=== PATIENT | male | born 1960 ===

== ENCOUNTER → 2018-08-26 | Outpatient (CLI) | payer OTHER ==
--- NOTE | 2018-08-27 09:23 | Diagnostic Imaging Report ---
MRI SPINE LUMBAR WO HISTORY: Lumbar strain COMPARISON: None. TECHNIQUE: Sagittal T1, sagittal T2, sagittal STIR, axial T2, coronal T2, and axial proton density weighted images of the lumbar spine were obtained without contrast. DISCUSSION: Number of non-rib bearing lumbar vertebral bodies: 5. Alignment: Normal lordosis. No scoliosis. Vertebrae: No fractures, or neoplasm. Conus medullaris: Normal, ends at L1. Cauda equina: No masses or arachnoiditis. Posterior paraspinal muscles: Well preserved. No signal abnormalities. Soft tissues: No signal abnormalities. Mild multilevel lumbar disc degeneration is present. There are nonspecific minimal inflammatory endplate changes at L1-L2, L2-L3, and L4-L5. T12-L1: Disc bulge without significant canal or foraminal stenosis. L1-L2: Mild canal stenosis due to disc bulge, ligamentum flavum thickening, and superimposed 5 mm left paracentral disc extrusion (with 15 mm superior migration). The left lateral recess is effaced. No significant foraminal stenosis. L2-L3: Mild left foraminal stenosis due to disc bulge and facet arthrosis. No significant canal or right foraminal stenosis. L3-L4: Mild canal stenosis due to disc bulge and ligamentum flavum thickening. Mild bilateral foraminal stenoses due to disc bulge and facet arthrosis. L4-L5: Mild canal stenosis due to disc bulge and ligamentum flavum thickening. Both lateral recesses are slightly effaced. Mild to moderate bilateral foraminal stenoses due to disc bulge and facet arthrosis. L5-S1: Mild to moderate bilateral foraminal stenoses due to disc bulge and facet arthrosis. No significant canal stenosis. IMPRESSION: 1. Mild multilevel lumbar disc degeneration. Nonspecific minimal inflammatory endplate changes at L1-L2, L2-L3, and L4-L5. 2. Mild degenerative canal stenoses at L1-L2, L3-L4, and L4-L5. 3. Associated left L1-L2 paracentral disc extrusion (with 15 mm superior migration) effaces the left lateral recess. 4. Mild to moderate bilateral degenerative foraminal stenoses at L4-L5 and L5-S1. Signed by: Dr. Emmanuel Burns M.D. on 08/27/2018 9:19 AM
== END ==
LOC: MRI 11:15
PROVIDERS: ATTEND Family Medicine
DX: S39.012D Strain of muscle, fascia and tendon of lower back, subsequent encounter (principal)
CPT/HCPCS: 72148